=== PATIENT | male | born 2000 | race African-American/Black ===

== ENCOUNTER 2024-04-11 15:50 | Emergency (ER) | payer OTHER ==
[~2024-04-11] VITALS: Ht 170.2 cm; Wt 82.9 kg
[2024-04-11] MEDS ORDERED: IBUP200T46 PO (16:02)
[2024-04-11] MEDS ORDERED: KETOROLAC 30 MG/ML 1ML VIAL IV ONE (20:20)
[2024-04-11] MEDS ORDERED: IBUP-1022 PO (20:23)
[2024-04-11] MEDS ORDERED: CYCL-707 PO (20:25)
[2024-04-11] MEDS: KETOROLAC 30 MG/ML 1ML VIAL IM ONE (20:41)
[2024-04-11 20:46] VITALS: BP 143/84; TEMP 96.8; O2SAT 100
== END 2024-04-11 20:48 | disposition home or self-care (01) ==
LOC: M ED 15:50
DX: M25.512 Pain in left shoulder (principal); M79.2 Neuralgia and neuritis, unspecified; Z79.1 Long term (current) use of non-steroidal anti-inflammatories (NSAID); Z79.899 Other long term (current) drug therapy
CPT/HCPCS: 73030; 96372; 99283; J1885